=== PATIENT | male | born 1995 | race Caucasian/White ===

== ENCOUNTER 2021-03-23 19:56 | Emergency (ER) | payer OTHER, SELFPAY ==
[2021-03-23 20:23] VITALS: BP 148/88; PULSE 123; RESP 18; TEMP 36.3; O2SAT 100
[2021-03-23 21:08] VITALS: BP 132/66; PULSE 88; RESP 16; O2SAT 99
[2021-03-23 21:13] VITALS: BP 132/66; PULSE 85; RESP 17; O2SAT 98
--- NOTE | 2021-03-23 21:14 | PC.NURSE ---
Pt presents to ED with full body hives. Pt states his skin itches and ortiz. 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 States he presented to work at approx 1900 and left a meeting and immediately afterwards, he noticed that his left arm was itching and a short while after he was covered in hives. Pt denies coming in contact with any chemicals. Pt states he has been working at [employer] for the past 5 years and denies previous episodes; also denies allergy hx. States he was sneezing a lot prior to outbreak. Pt noted to be alert and oriented x4 and in no obvious distress with stable vitals. and sister present at bedside. Call button and personal items within reach. Pt advised to press call button for assistance.
[2021-03-23] MEDS: EPINEPHrine HCL INJ 1 MG/ML AMPUL 0.3 MG IM (22:33)
[2021-03-23] MEDS: diphenhydrAMINE HCl INJ 50 MG/ML VIAL IV PUSH (22:33)
--- NOTE | 2021-03-23 22:38 | PC.NURSE ---
Awaiting medications from pharmacy.
[2021-03-23] MEDS: FAMOTIDINE 20 MG/2 ML VIAL IV PUSH (22:44)
--- NOTE | 2021-03-23 22:52 | PC.NURSE ---
Med received from pharmacy.
--- NOTE | 2021-03-23 22:58 | PC.NURSE ---
Erythema and swelling noted to decrease at this time and pt states he feels much better. remains alert and oriented x4. breathing even and unlabored and vitals are stable. remains at bedside. Pt advised to press call button for assistance.
[2021-03-23 23:00] VITALS: BP 122/69; PULSE 79; RESP 21; O2SAT 100
--- NOTE | 2021-03-23 23:27 | ED.GENADULT ---
HPI - General Adult General Chief complaint: Skin/Abscess/Foreign Body Stated complaint: Hives Time Seen by Provider: 03/23/21 21:33 Source: patient Mode of arrival: ambulatory Limitations: no limitations History of Present Illness HPI narrative: Patient is 25 years old white male presents with itching rash all over started few hours prior to arrival to the emergency room. Patient denies any shortness of breath or difficulty swallowing. Patient denied any history of allergy. Patient denies any fever, chills, nausea, vomiting, shortness of breath, difficulty swallowing, swelling of tongue or lips. Patient works in [employer] which high likely the underlying cause of his symptoms. Related Data Allergies Allergy/AdvReac Type Severity Reaction Status Date / Time No Known Allergies Allergy Mild Unverified 12/17/10 23:04 Review of Systems Review of Systems: Narrative: CONSTITUTIONAL: Denies fever, chills, or sweats. EYES: Denies visual changes, redness, or discharge. ENT: Denies rhinorrhea, congestion, sore throat, or otalgia. CARDIOVASCULAR: Denies chest pain, palpitations, or edema. RESPIRATORY: Denies cough or dyspnea. GASTROINTESTINAL: Denies abdominal pain, nausea, vomiting, or diarrhea. GENITOURINARY: Denies dysuria or hematuria. SKIN: Denies rash or itching. MUSCULOSKELETAL: Denies back pain, joint pain, or myalgia. NEUROLOGIC: Denies headache, numbness, or weakness. PSYCHIATRIC: Denies anxiety or depression. Exam Narrative: Exam Narrative: General appearance: Well-developed, well-nourished Skin: Widespread hives Head: Normocephalic, nontraumatic Eyes: Clear conjunctiva ENT: Oropharynx normal, ears normal, nose normal Neck: Supple, nontender Chest and respiratory: Airway patent, no respiratory distress, no accessory muscle use Heart: Regular rate/rhythm Abdomen: Soft, nontender, no organomegaly, quiet bowel sounds Vascular: Normal peripheral pulses, normal capillary refill. Musculoskeletal: Normal range of motion, nontender back Neurologic: Alert and oriented ?3, [employer] P[employer] is normal as tested, no gross motor deficit Course Course Emergency Course: Improving Vital Signs Vital signs: Vital Signs Temperature 36.3 C L 03/23/21 20:23 Pulse Rate 123 H 03/23/21 20:23 Respiratory Rate 18 03/23/21 20:23 Blood Pressure 148/88 H 03/23/21 20:23 Pulse Oximetry 100 03/23/21 20:23 Temperature 36.3 C L 03/23/21 20:23 Pulse Rate 79 03/23/21 23:00 Respiratory Rate 21 H 03/23/21 23:00 Blood Pressure 122/69 03/23/21 23:00 Pulse Oximetry 100 03/23/21 23:00 Medical Decision Making MDM Narrative Medical decision making narrative: Acute allergic reaction, high likely to chemicals at work. Solu-Medrol, epinephrine, Benadryl, Zyrtec, Pepcid ordered. Further plan to follow Differential Diagnosis Differential Diagnosis: Acute dermatitis Vital Signs Vital Signs: Vital Signs Temperature 36.3 C L 03/23/21 20:23 Pulse Rate 123 H 03/23/21 20:23 Respiratory Rate 18 03/23/21 20:23 Blood Pressure 148/88 H 03/23/21 20:23 Pulse Oximetry 100 03/23/21 20:23 Temperature 36.3 C L 03/23/21 20:23 Pulse Rate 79 03/23/21 23:00 Respiratory Rate 21 H 03/23/21 23:00 Blood Pressure 122/69 03/23/21 23:00 Pulse Oximetry 100 03/23/21 23:00 Critical Care Time Critical Care Time Critical Care Time: Yes Total Critical Care Time: 20 Discharge Plan Discharge Clinical Impression: Acute dermatitis Patient Disposition: Home, Self-Care Condition: Improved Instructions: Dermatitis (ED) Additional Instructions: Return if symptoms are worsening , call your family physician for appointment, take Tylenol as as n
--- NOTE | 2021-03-23 23:35 | PC.NURSE ---
EDMD presented to bedside to update pt and on poc. Pt skin noted to clear and free of hives, rash and erythema. Pt states he feels great. vitals are stable. Breathing is even and unlabored and pt in no obvious distress at this time.
== END 2021-03-23 23:53 | disposition home or self-care (01) ==
PROVIDERS: Emergency Provider Emergency Medicine
DX: L30.9 Dermatitis, unspecified (principal)
CPT/HCPCS: 96365; 96372; 96375; 99284; J0171; J1200